=== PATIENT | male | born 1940 | race Caucasian/White ===

== ENCOUNTER 2021-11-05 22:32 | Observation (INO) | payer OTHER ==
[2021-11-05 22:46] VITALS: BMI 19.3
[2021-11-05] MEDS ORDERED: DIPHTH,PERTUSS(ACELL),TET 0.5 ML DISP.SYRIN IM ONE ×2 (23:04→23:33)
[2021-11-05 23:48] LABS: HEMATOCRIT 30.9 % (35.4-49); HEMOGLOBIN 10.9 GM/dL (11.7-16.9); MCH 32.5 pg (25.7-33.7); MCHC 35.1 g/dl (32.0-35.9); MEAN CELL VOLUME 92.6 fl (80-96); MEAN PLT VOLUME 7.7 fl (7.5-11.1); PLATELET COUNT 122 10^3/uL (134-434); RBC 3.34 M/mm3 (4.00-5.60); RDW 16.2 % (11.9-15.9); WHITE BLOOD COUNT 5.3 K/mm3 (4.0-10.0)
[2021-11-05 23:53] LABS: INR 1.11 (0.83-1.09); PROTHROMBIN TIME (PATIENT) 12.8 SEC (9.7-13.0)
[2021-11-05 23:56] LABS: ACTIVATED PTT 42.1 SECONDS (25.2-36.5)
[2021-11-06 00:14] LABS: ALBUMIN 3.7 g/dl (3.4-5.0); BLOOD UREA NITROGEN 37.9 mg/dL (7-18); MAGNESIUM 1.8 mg/dL (1.8-2.4)
[2021-11-06 00:17] LABS: CREATININE 1.4 mg/dL (0.55-1.3)
[2021-11-06 00:20] LABS: BILIRUBIN,TOTAL 0.9 mg/dL (0.2-1)
[2021-11-06 01:18] LABS: ANISOCYTOSIS 1+; MACROCYTOSIS 0; OVALOCYTE 2+; TEAR DROP CELLS 2+; TOXIC GRANULATION 2+
[2021-11-06] MEDS ORDERED: ACETAMINOPHEN 500 MG TABLET (FP) PO PRN (03:14)
[2021-11-06 07:23] VITALS: TEMP 98.3
[2021-11-06] MEDS: INSULIN SLIDING SCALE (NOVOLOG) 1 VIAL SQ SCH ×2 (07:57→18:23)
[2021-11-06] MEDS ORDERED: LABETALOL HCL 100 MG TABLET (FP) ONE ×2 (09:09→21:38)
[2021-11-06] MEDS ORDERED: PANTOPRAZOLE 40 MG TABLET PO ONE (09:09)
[2021-11-06] MEDS ORDERED: DOCUSATE SODIUM 100 MG CAPSULE (FP) PO ONE ×2 (09:10→21:38)
[2021-11-06] MEDS ORDERED: LOSARTAN POTASSIUM 50 MG TABLET ONE (09:10)
[2021-11-06] MEDS: D5-1/2NS+10 MEQ KCL - 10 MEQ/1,000 ML INFUS.BAG IV SCH ×2 (09:18→22:17)
[2021-11-06] MEDS: PANTOPRAZOLE 40 MG TABLET PO SCH (09:19)
[2021-11-06] MEDS: LOSARTAN POTASSIUM 50 MG TABLET PO SCH (09:19)
[2021-11-06] MEDS: DOCUSATE SODIUM 100 MG CAPSULE (FP) PO SCH ×2 (09:19→21:50)
[2021-11-06] MEDS: LABETALOL HCL 200 MG TABLET (FP) PO SCH ×2 (09:19→21:50)
[2021-11-06] MEDS ORDERED: BACITRACIN 15 GM TUBE TOPICAL OINTMENT TP SCH (10:00)
[2021-11-06] MEDS: HEPARIN NA (PORCINE) 5,000 UNITS/ML 1ML VIAL SQ SCH ×2 (14:45→21:50)
[2021-11-06] MEDS ORDERED: HEPARIN NA (PORCINE) 5,000 UNITS/ML 1ML VIAL ONE ×2 (15:32→21:38)
[2021-11-06] MEDS ORDERED: ATORVASTATIN CA 20 MG TABLET (FP) ONE (22:00)
[2021-11-06] MEDS ORDERED: ATORVASTATIN CA 20 MG TABLET (FP) PO SCH (22:15)
[2021-11-07] MEDS ORDERED: HEPARIN NA (PORCINE) 5,000 UNITS/ML 1ML VIAL ONE (05:30)
[2021-11-07] MEDS: HEPARIN NA (PORCINE) 5,000 UNITS/ML 1ML VIAL SQ SCH (05:37)
[2021-11-07] MEDS: D5-1/2NS+10 MEQ KCL - 10 MEQ/1,000 ML INFUS.BAG IV SCH (05:37)
[2021-11-07] MEDS: INSULIN SLIDING SCALE (NOVOLOG) 1 VIAL SQ SCH (06:01)
[2021-11-07 08:22] LABS: HEMATOCRIT 29.3 % (35.4-49); HEMOGLOBIN 10.5 GM/dL (11.7-16.9); MCH 32.4 pg (25.7-33.7); MCHC 35.7 g/dl (32.0-35.9); MEAN CELL VOLUME 90.7 fl (80-96); MEAN PLT VOLUME 7.8 fl (7.5-11.1); PLATELET COUNT 105 10^3/uL (134-434); RBC 3.23 M/mm3 (4.00-5.60); RDW 15.8 % (11.9-15.9); WHITE BLOOD COUNT 4.5 K/mm3 (4.0-10.0)
[2021-11-07 08:27] LABS: BLOOD UREA NITROGEN 27.2 mg/dL (7-18); CALCIUM 8.1 mg/dL (8.5-10.1)
[2021-11-07 08:31] LABS: CREATININE 1.1 mg/dL (0.55-1.3)
[2021-11-07] MEDS ORDERED: D5-1/2NS+10 MEQ KCL - 10 MEQ/1,000 ML INFUS.BAG IV SCH (08:35)
[2021-11-07 09:03] LABS: ANISOCYTOSIS 0; HELMET CELLS 0; HOWELL-JOLLY BODIES 0; MACROCYTOSIS 0; OVALOCYTE 0; ROULEAU 0; SICKELED CELLS 0; TARGET CELLS 0; TEAR DROP CELLS 0; TOXIC GRANULATION 0
[2021-11-07] MEDS ORDERED: LOSARTAN POTASSIUM 50 MG TABLET ONE (09:51)
[2021-11-07] MEDS ORDERED: DOCUSATE SODIUM 100 MG CAPSULE (FP) PO ONE (09:52)
[2021-11-07] MEDS ORDERED: PANTOPRAZOLE 40 MG TABLET PO ONE (11:08)
[2021-11-07] MEDS: LABETALOL HCL 200 MG TABLET (FP) PO SCH (11:15)
[2021-11-07] MEDS: DOCUSATE SODIUM 100 MG CAPSULE (FP) PO SCH (11:15)
[2021-11-07] MEDS: LOSARTAN POTASSIUM 50 MG TABLET PO SCH (11:15)
[2021-11-07] MEDS: PANTOPRAZOLE 40 MG TABLET PO SCH (11:15)
[2021-11-07 11:28] VITALS: BP 150/70; PULSE 68; RESP 18
== END 2021-11-07 11:40 | disposition home or self-care (01) ==
LOC: JER 22:32 → JERBED 23:06
PROVIDERS: ADMIT Internal Medicine; ATTEND Internal Medicine
PROC: 0HQ0XZZ Repair Scalp Skin, External Approach (ICD-10-PCS; principal; 2021-11-05)
DX: S01.01XA Laceration without foreign body of scalp, initial encounter (principal); S06.0X9A Concussion with loss of consciousness of unspecified duration, initial encounter; D64.9 Anemia, unspecified; R16.1 Splenomegaly, not elsewhere classified; R79.89 Other specified abnormal findings of blood chemistry; E77.8 Other disorders of glycoprotein metabolism; E83.51 Hypocalcemia; R55 Syncope and collapse; I10 Essential (primary) hypertension; K80.20 Calculus of gallbladder without cholecystitis without obstruction; D35.00 Benign neoplasm of unspecified adrenal gland; E86.0 Dehydration; Z86.16 Personal history of COVID-19; E78.2 Mixed hyperlipidemia; D72.810 Lymphocytopenia; R50.9 Fever, unspecified; Z85.46 Personal history of malignant neoplasm of prostate; W18.39XA Other fall on same level, initial encounter; Y93.89 Activity, other specified; Y92.89 Other specified places as the place of occurrence of the external cause
CPT/HCPCS: 12001; 36415; 70450-TC; 71046-TC-FY; 72125-TC; 80048; 80053; 82728; 82962; 83540; 83550; 83735; 84484; 85025; 85610; 85730; 90715; 93005; 93010; 93306-TC; 93880-TC; 99285-25; C9803-CS; G0378; J1644; U0003; U0005

== ENCOUNTER 2023-02-20 12:38 | Inpatient (IN) | payer OTHER ==
[2023-02-20 12:56] VITALS: BMI 31.6
[2023-02-20 14:03] LABS: HEMATOCRIT 34.4 % (35.4-49); HEMOGLOBIN 11.5 G/dL (11.7-16.9); MCH 30.7 pg (25.7-33.7); MCHC 33.4 g/dl (32.0-35.9); MEAN CELL VOLUME 92.1 fl (80-96); MEAN PLT VOLUME 9.5 fl (7.5-11.1); PLATELET COUNT 140.6 10^3/uL (134-434); RBC 3.74 10^6/uL (4.00-5.60); RDW 16.8 % (11.9-15.9); WHITE BLOOD COUNT 9.7 10^3/uL (4.0-10.8)
[2023-02-20 14:10] LABS: ALBUMIN 4.3 g/dl (3.4-5.0); BILIRUBIN,TOTAL 1.2 mg/dl (0.2-1); CALCIUM 8.8 mg/dl (8.5-10.1); CREATININE 1.3 mg/dl (0.6-1.3); POTASSIUM 4.4 mmol/L (3.5-5.1); TOT PROT 6.2 g/dl (6.4-8.2)
[2023-02-20] MEDS ORDERED: CLINDAMYCIN 600MG PREMIX IVPB 600 MG/50 ML BAG IVPB ONE ×2 (14:54→15:38)
[2023-02-20 15:48] LABS: ANISOCYTOSIS 1+
[2023-02-20 15:50] LABS: OVALOCYTE FEW; PLATELET ESTIMATE SLT DECREASE; TEAR DROP CELLS FEW
[2023-02-20] MEDS ORDERED: DEXTROSE 5%-0.45% SALINE 1,000 ML IV SCH (16:00)
[2023-02-20] MEDS: PANTOPRAZOLE 40 MG TABLET PO SCH (19:01)
[2023-02-20] MEDS: MULTIVITAMINS THER W-MINERALS COMBO TABLET (FP) PO SCH (19:01)
[2023-02-20] MEDS: HEPARIN NA (PORCINE) 5,000 UNITS/ML 1ML VIAL SQ SCH ×3 (19:01→22:00)
[2023-02-20] MEDS: ZINC SULFATE 220 MG CAPSULE (FP) PO SCH (19:01)
[2023-02-20] MEDS: ASCORBIC ACID 500 MG TABLET (FP) PO SCH (19:01)
[2023-02-20] MEDS: CHOLECALCIFEROL (VIT D3) 5000 UNITS (125 MCG) CAP PO SCH (19:01)
[2023-02-20] MEDS: LABETALOL HCL 200 MG TABLET (FP) PO SCH (21:29)
[2023-02-20] MEDS: ATORVASTATIN CA 20 MG TABLET (FP) PO SCH (21:29)
[2023-02-20] MEDS: DOCUSATE SODIUM 100 MG CAPSULE (FP) PO SCH (21:30)
[2023-02-20] MEDS: VITAMIN A 10,000 UNITS (3000 MCG) CAPSULE PO SCH (23:33)
[2023-02-21] MEDS ORDERED: DEXTROSE 5%-0.45% SALINE 1,000 ML IV SCH (06:13)
[2023-02-21] MEDS ORDERED: ACETAMINOPHEN 325 MG TABLET (FP) PO PRN (06:16)
[2023-02-21] MEDS: HEPARIN NA (PORCINE) 5,000 UNITS/ML 1ML VIAL SQ SCH (06:57)
[2023-02-21 08:51] LABS: HEMATOCRIT 29.1 % (35.4-49); HEMOGLOBIN 9.7 G/dL (11.7-16.9); MCH 30.7 pg (25.7-33.7); MCHC 33.2 g/dl (32.0-35.9); MEAN CELL VOLUME 92.3 fl (80-96); MEAN PLT VOLUME 9.5 fl (7.5-11.1); PLATELET COUNT 107.9 10^3/uL (134-434); RBC 3.15 10^6/uL (4.00-5.60); RDW 16.1 % (11.9-15.9)
[2023-02-21 10:02] LABS: ALBUMIN 3.5 g/dl (3.4-5.0); BILIRUBIN,TOTAL 0.7 mg/dl (0.2-1); CALCIUM 8.1 mg/dl (8.5-10.1); CREATININE 1.1 mg/dl (0.6-1.3); POTASSIUM 3.4 mmol/L (3.5-5.1)
[2023-02-21] MEDS: PANTOPRAZOLE 40 MG TABLET PO SCH (10:17)
[2023-02-21] MEDS: MULTIVITAMINS THER W-MINERALS COMBO TABLET (FP) PO SCH (10:17)
[2023-02-21] MEDS: CHOLECALCIFEROL (VIT D3) 5000 UNITS (125 MCG) CAP PO SCH (10:17)
[2023-02-21] MEDS: ASCORBIC ACID 500 MG TABLET (FP) PO SCH (10:17)
[2023-02-21] MEDS: ZINC SULFATE 220 MG CAPSULE (FP) PO SCH (10:17)
[2023-02-21] MEDS: LOSARTAN POTASSIUM 50 MG TABLET PO SCH (10:17)
[2023-02-21] MEDS: DOCUSATE SODIUM 100 MG CAPSULE (FP) PO SCH ×2 (10:17→21:18)
[2023-02-21] MEDS: LABETALOL HCL 200 MG TABLET (FP) PO SCH ×2 (10:41→21:18)
[2023-02-21] MEDS: VANCOMYCIN/WATER 1250 MG 1,250 MG/250 ML BAG IVPB SCH ×2 (12:14→22:14)
[2023-02-21] MEDS: CLOPIDOGREL BISULFATE 75 MG TABLET (FP) PO SCH (12:14)
[2023-02-21] MEDS: HYDROCHLOROTHIAZIDE 25 MG TABLET (FP) PO SCH (12:14)
[2023-02-21] MEDS: VITAMIN A 10,000 UNITS (3000 MCG) CAPSULE PO SCH (18:36)
[2023-02-21] MEDS: ATORVASTATIN CA 20 MG TABLET (FP) PO SCH (21:18)
[2023-02-22] MEDS: VANCOMYCIN/WATER 1250 MG 1,250 MG/250 ML BAG IVPB SCH (10:18)
[2023-02-22] MEDS: VITAMIN A 10,000 UNITS (3000 MCG) CAPSULE PO SCH (10:18)
[2023-02-22] MEDS: CLOPIDOGREL BISULFATE 75 MG TABLET (FP) PO SCH (10:19)
[2023-02-22] MEDS: ASCORBIC ACID 500 MG TABLET (FP) PO SCH (10:19)
[2023-02-22] MEDS: CHOLECALCIFEROL (VIT D3) 5000 UNITS (125 MCG) CAP PO SCH (10:19)
[2023-02-22] MEDS: PANTOPRAZOLE 40 MG TABLET PO SCH (10:19)
[2023-02-22] MEDS: LOSARTAN POTASSIUM 50 MG TABLET PO SCH (10:19)
[2023-02-22] MEDS: LABETALOL HCL 200 MG TABLET (FP) PO SCH ×2 (10:19→21:34)
[2023-02-22] MEDS: HYDROCHLOROTHIAZIDE 25 MG TABLET (FP) PO SCH (10:19)
[2023-02-22] MEDS: ZINC SULFATE 220 MG CAPSULE (FP) PO SCH (10:19)
[2023-02-22] MEDS: DOCUSATE SODIUM 100 MG CAPSULE (FP) PO SCH ×2 (10:19→21:33)
[2023-02-22] MEDS: MULTIVITAMINS THER W-MINERALS COMBO TABLET (FP) PO SCH (10:19)
[2023-02-22 11:21] LABS: HEMATOCRIT 28.8 % (35.4-49); HEMOGLOBIN 9.6 G/dL (11.7-16.9); MCH 30.8 pg (25.7-33.7); MCHC 33.4 g/dl (32.0-35.9); MEAN CELL VOLUME 92.2 fl (80-96); PLATELET COUNT 111.1 10^3/uL (134-434); RBC 3.12 10^6/uL (4.00-5.60); RDW 16.9 % (11.9-15.9); WHITE BLOOD COUNT 4.8 10^3/uL (4.0-10.8)
[2023-02-22 12:41] LABS: ERYTHROCYTE SEDIMENTATION RATE 14 mm/hr (0-20)
[2023-02-22 13:40] LABS: CALCIUM 8.3 mg/dl (8.5-10.1); CREATININE 1.1 mg/dl (0.6-1.3); POTASSIUM 3.7 mmol/L (3.5-5.1)
[2023-02-22 14:50] LABS: ADD RBC MORPHOLOGY YES; PLATELET ESTIMATE SLT DECREASE
[2023-02-22 14:54] LABS: ANISOCYTOSIS OCCASIONAL; OVALOCYTE OCCASIONAL
[2023-02-22] MEDS: CEFAZOLIN SODIUM 2 GM in DEXTROSE 5%-WATER 100 ML IVPB SCH (17:42)
[2023-02-22] MEDS: ATORVASTATIN CA 20 MG TABLET (FP) PO SCH (21:33)
[2023-02-23] MEDS: CEFAZOLIN SODIUM 2 GM in DEXTROSE 5%-WATER 100 ML IVPB SCH ×3 (02:15→17:57)
[2023-02-23 09:25] LABS: BASO % 0.8 % (0-2.0); EOS % 1.7 % (0-4.5); HEMATOCRIT 29.2 % (35.4-49); HEMOGLOBIN 9.8 GM/dL (11.7-16.9); LYMPH % 12.7 % (8-40); MCH 30.7 pg (25.7-33.7); MCHC 33.6 g/dl (32.0-35.9); MEAN CELL VOLUME 91.3 fl (80-96); MEAN PLT VOLUME 7.8 fl (7.5-11.1); MONO % 12.8 % (3.8-10.2); PLATELET COUNT 121 10^3/uL (134-434); RBC 3.19 M/mm3 (4.00-5.60); RDW 16.1 % (11.9-15.9); WHITE BLOOD COUNT 4.2 K/mm3 (4.0-10.0)
[2023-02-23] MEDS: LOSARTAN POTASSIUM 50 MG TABLET PO SCH (10:26)
[2023-02-23] MEDS: ZINC SULFATE 220 MG CAPSULE (FP) PO SCH (10:26)
[2023-02-23] MEDS: LABETALOL HCL 200 MG TABLET (FP) PO SCH ×2 (10:26→22:25)
[2023-02-23] MEDS: MULTIVITAMINS THER W-MINERALS COMBO TABLET (FP) PO SCH (10:26)
[2023-02-23] MEDS: CLOPIDOGREL BISULFATE 75 MG TABLET (FP) PO SCH (10:26)
[2023-02-23] MEDS: PANTOPRAZOLE 40 MG TABLET PO SCH (10:26)
[2023-02-23] MEDS: ASCORBIC ACID 500 MG TABLET (FP) PO SCH (10:26)
[2023-02-23] MEDS: HYDROCHLOROTHIAZIDE 25 MG TABLET (FP) PO SCH (10:26)
[2023-02-23] MEDS: DOCUSATE SODIUM 100 MG CAPSULE (FP) PO SCH ×2 (10:26→22:25)
[2023-02-23] MEDS: VITAMIN A 10,000 UNITS (3000 MCG) CAPSULE PO SCH (10:26)
[2023-02-23] MEDS: CHOLECALCIFEROL (VIT D3) 5000 UNITS (125 MCG) CAP PO SCH (10:27)
[2023-02-23] MEDS ORDERED: IRON SUCROSE INJECTION 300 MG in SODIUM CHLORIDE 250 ML IVPB ONE (13:24)
[2023-02-23] MEDS: ATORVASTATIN CA 20 MG TABLET (FP) PO SCH (22:25)
[2023-02-24] MEDS: CEFAZOLIN SODIUM 2 GM in DEXTROSE 5%-WATER 100 ML IVPB SCH ×3 (01:37→17:04)
[2023-02-24] MEDS: CLOPIDOGREL BISULFATE 75 MG TABLET (FP) PO SCH (09:28)
[2023-02-24] MEDS: DOCUSATE SODIUM 100 MG CAPSULE (FP) PO SCH ×2 (09:28→22:21)
[2023-02-24] MEDS: LABETALOL HCL 200 MG TABLET (FP) PO SCH ×2 (09:28→22:21)
[2023-02-24] MEDS: ASCORBIC ACID 500 MG TABLET (FP) PO SCH (09:29)
[2023-02-24] MEDS: VITAMIN A 10,000 UNITS (3000 MCG) CAPSULE PO SCH (09:29)
[2023-02-24] MEDS: LOSARTAN POTASSIUM 50 MG TABLET PO SCH (09:29)
[2023-02-24] MEDS: MULTIVITAMINS THER W-MINERALS COMBO TABLET (FP) PO SCH (09:29)
[2023-02-24] MEDS: ZINC SULFATE 220 MG CAPSULE (FP) PO SCH (09:29)
[2023-02-24] MEDS: CHOLECALCIFEROL (VIT D3) 5000 UNITS (125 MCG) CAP PO SCH (09:29)
[2023-02-24] MEDS: PANTOPRAZOLE 40 MG TABLET PO SCH (09:29)
[2023-02-24] MEDS: HYDROCHLOROTHIAZIDE 25 MG TABLET (FP) PO SCH (09:29)
[2023-02-24 09:48] LABS: HEMATOCRIT 31.5 % (35.4-49); HEMOGLOBIN 10.9 GM/dL (11.7-16.9); MCHC 34.7 g/dl (32.0-35.9); MEAN CELL VOLUME 89.5 fl (80-96); PLATELET COUNT 142 10^3/uL (134-434); RBC 3.53 M/mm3 (4.00-5.60); RDW 16.6 % (11.9-15.9); WHITE BLOOD COUNT 5.1 K/mm3 (4.0-10.0)
[2023-02-24 11:09] LABS: ANISOCYTOSIS 1+; MACROCYTOSIS 0
[2023-02-24] MEDS: ATORVASTATIN CA 20 MG TABLET (FP) PO SCH (22:20)
[2023-02-25] MEDS: CEFAZOLIN SODIUM 2 GM in DEXTROSE 5%-WATER 100 ML IVPB SCH ×3 (01:44→17:42)
[2023-02-25] MEDS: DOCUSATE SODIUM 100 MG CAPSULE (FP) PO SCH ×2 (09:30→21:47)
[2023-02-25] MEDS: ZINC SULFATE 220 MG CAPSULE (FP) PO SCH (09:30)
[2023-02-25] MEDS: MULTIVITAMINS THER W-MINERALS COMBO TABLET (FP) PO SCH (09:30)
[2023-02-25] MEDS: LABETALOL HCL 200 MG TABLET (FP) PO SCH ×2 (09:30→21:47)
[2023-02-25] MEDS: CHOLECALCIFEROL (VIT D3) 5000 UNITS (125 MCG) CAP PO SCH (09:30)
[2023-02-25] MEDS: HYDROCHLOROTHIAZIDE 25 MG TABLET (FP) PO SCH (09:30)
[2023-02-25] MEDS: PANTOPRAZOLE 40 MG TABLET PO SCH (09:30)
[2023-02-25] MEDS: CLOPIDOGREL BISULFATE 75 MG TABLET (FP) PO SCH (09:30)
[2023-02-25] MEDS: LOSARTAN POTASSIUM 50 MG TABLET PO SCH (09:31)
[2023-02-25] MEDS: VITAMIN A 10,000 UNITS (3000 MCG) CAPSULE PO SCH (09:31)
[2023-02-25] MEDS: ASCORBIC ACID 500 MG TABLET (FP) PO SCH (09:31)
[2023-02-25] MEDS: ATORVASTATIN CA 20 MG TABLET (FP) PO SCH (21:47)
[2023-02-26] MEDS: CEFAZOLIN SODIUM 2 GM in DEXTROSE 5%-WATER 100 ML IVPB SCH ×3 (02:05→18:01)
[2023-02-26] MEDS: LABETALOL HCL 200 MG TABLET (FP) PO SCH ×2 (09:13→21:23)
[2023-02-26] MEDS: VITAMIN A 10,000 UNITS (3000 MCG) CAPSULE PO SCH (09:13)
[2023-02-26] MEDS: ASCORBIC ACID 500 MG TABLET (FP) PO SCH (09:14)
[2023-02-26] MEDS: PANTOPRAZOLE 40 MG TABLET PO SCH (09:14)
[2023-02-26] MEDS: CHOLECALCIFEROL (VIT D3) 5000 UNITS (125 MCG) CAP PO SCH (09:14)
[2023-02-26] MEDS: HYDROCHLOROTHIAZIDE 25 MG TABLET (FP) PO SCH (09:14)
[2023-02-26] MEDS: CLOPIDOGREL BISULFATE 75 MG TABLET (FP) PO SCH (09:14)
[2023-02-26] MEDS: DOCUSATE SODIUM 100 MG CAPSULE (FP) PO SCH ×2 (09:14→21:23)
[2023-02-26] MEDS: MULTIVITAMINS THER W-MINERALS COMBO TABLET (FP) PO SCH (09:14)
[2023-02-26] MEDS: LOSARTAN POTASSIUM 50 MG TABLET PO SCH (09:14)
[2023-02-26] MEDS: ZINC SULFATE 220 MG CAPSULE (FP) PO SCH (09:14)
[2023-02-26] MEDS: ATORVASTATIN CA 20 MG TABLET (FP) PO SCH (21:23)
[2023-02-27] MEDS: CEFAZOLIN SODIUM 2 GM in DEXTROSE 5%-WATER 100 ML IVPB SCH ×2 (01:27→10:06)
[2023-02-27 02:18] VITALS: RESP 18
[2023-02-27] MEDS: LOSARTAN POTASSIUM 50 MG TABLET PO SCH (10:03)
[2023-02-27] MEDS: HYDROCHLOROTHIAZIDE 25 MG TABLET (FP) PO SCH (10:04)
[2023-02-27] MEDS: ZINC SULFATE 220 MG CAPSULE (FP) PO SCH (10:04)
[2023-02-27] MEDS: ASCORBIC ACID 500 MG TABLET (FP) PO SCH (10:04)
[2023-02-27] MEDS: CLOPIDOGREL BISULFATE 75 MG TABLET (FP) PO SCH (10:04)
[2023-02-27] MEDS: CHOLECALCIFEROL (VIT D3) 5000 UNITS (125 MCG) CAP PO SCH (10:04)
[2023-02-27] MEDS: PANTOPRAZOLE 40 MG TABLET PO SCH (10:05)
[2023-02-27] MEDS: DOCUSATE SODIUM 100 MG CAPSULE (FP) PO SCH (10:05)
[2023-02-27] MEDS: LABETALOL HCL 200 MG TABLET (FP) PO SCH (10:05)
[2023-02-27] MEDS: MULTIVITAMINS THER W-MINERALS COMBO TABLET (FP) PO SCH (10:05)
[2023-02-27] MEDS: VITAMIN A 10,000 UNITS (3000 MCG) CAPSULE PO SCH (10:05)
[2023-02-27 14:19] VITALS: BP 131/52; PULSE 66; TEMP 98.8
[2023-02-27] MEDS ORDERED: AMOX TR/POT CLAV 875MG/125MG TABLETS (FP) PO SCH (17:30)
== END 2023-02-27 14:49 | disposition home or self-care (01) | DRG 603 ==
LOC: FER 12:38 → FM/S 15:01
PROVIDERS: ADMIT Internal Medicine; ATTEND Internal Medicine
PROC: 0X9K0ZZ Drainage of Left Hand, Open Approach (ICD-10-PCS; principal; 2023-02-20)
DX: L03.012 Cellulitis of left finger (principal); L02.512 Cutaneous abscess of left hand; I10 Essential (primary) hypertension; E78.5 Hyperlipidemia, unspecified; F03.90 Unspecified dementia, unspecified severity, without behavioral disturbance, psychotic disturbance, mood disturbance, and anxiety; K59.00 Constipation, unspecified; D64.9 Anemia, unspecified; E86.0 Dehydration; M62.81 Muscle weakness (generalized); D69.6 Thrombocytopenia, unspecified; E66.9 Obesity, unspecified; Z68.31 Body mass index [BMI] 31.0-31.9, adult; M10.9 Gout, unspecified; L08.9 Local infection of the skin and subcutaneous tissue, unspecified; D50.9 Iron deficiency anemia, unspecified
CPT/HCPCS: 36415; 73130-TC-LT-FY; 80048; 80053; 82728; 83036; 83540; 83550; 85025; 85027; 85651; 87040; 87070; 87186; 87205; 93005; 97116-GP; 97161-GP; 99285-25; J1644; J1756

== ENCOUNTER 2023-04-07 10:30 | Emergency (ER) | payer OTHER ==
[2023-04-07 10:53] VITALS: PULSE 74; BMI 30.5
[2023-04-07 11:16] LABS: HEMATOCRIT 29.5 % (35.4-49); HEMOGLOBIN 9.9 G/dL (11.7-16.9); MCH 30.6 pg (25.7-33.7); MCHC 33.6 g/dl (32.0-35.9); MEAN CELL VOLUME 90.9 fl (80-96); MEAN PLT VOLUME 9.6 fl (7.5-11.1); RBC 3.24 10^6/uL (4.00-5.60); WHITE BLOOD COUNT 5.1 10^3/uL (4.0-10.8)
[2023-04-07 11:39] LABS: BILIRUBIN,TOTAL 1.3 mg/dl (0.2-1); CALCIUM 8.4 mg/dl (8.5-10.1); CREATININE 1.4 mg/dl (0.6-1.3); MAGNESIUM 1.3 mg/dL (1.8-2.4); POTASSIUM 4.2 mmol/L (3.5-5.1)
[2023-04-07] MEDS ORDERED: SODIUM CHLORIDE 0.9% 1000 ML INFUS.BAG IV ONE ×2 (12:10→13:17)
[2023-04-07 12:44] LABS: ANISOCYTOSIS 1+; PLATELET ESTIMATE DECREASED
[2023-04-07] MEDS ORDERED: ACETAMINOPHEN 1000 MG/100 ML BAG IVPB ONE (13:17)
[2023-04-07] MEDS ORDERED: ACETAMINOPHEN INJECTION 100 ML IVPB ONE (13:18)
[2023-04-07] MEDS ORDERED: CEFTRIAXONE 1 GM in DEXTROSE 5%-WATER - 100 ML IVPB ONE (13:48)
[2023-04-07] MEDS ORDERED: cefTRIAXone SODIUM 1 GM VIAL ONE (13:49)
[2023-04-07 14:25] VITALS: BP 105/73; RESP 16; TEMP 98
== END 2023-04-07 14:25 | disposition home or self-care (01) ==
LOC: SUPCPDRO 10:30 → FER 10:30
PROC: 3E03329 Introduction of Other Anti-infective into Peripheral Vein, Percutaneous Approach (ICD-10-PCS; principal; 2023-04-07)
PROC: 3E033NZ Introduction of Analgesics, Hypnotics, Sedatives into Peripheral Vein, Percutaneous Approach (ICD-10-PCS; 2023-04-07)
DX: N17.9 Acute kidney failure, unspecified (principal); J11.1 Influenza due to unidentified influenza virus with other respiratory manifestations; R42 Dizziness and giddiness; N39.0 Urinary tract infection, site not specified; R63.8 Other symptoms and signs concerning food and fluid intake; R53.1 Weakness; Z20.822 Contact with and (suspected) exposure to COVID-19
CPT/HCPCS: 0241U-QW; 36415; 71046-TC-FY; 80053; 81003; 81015; 83735; 84484; 85027; 87040; 87086; 87186; 93005; 99285-25; J0131